=== PATIENT | male | born 1980 | race Hispanic/Latino ===

== ENCOUNTER 2017-01-15 15:41 | Emergency (ER) | payer OTHER ==
[~2017-01-15] VITALS: Ht 172.7 cm; Wt 84.0 kg
[2017-01-15] MEDS ORDERED: Lidocaine 1% 50 mL Inj NERVEBLOCK ONE (16:05)
[2017-01-15] MEDS ORDERED: CeFAZolin Inj 1 GM in IV Premix 1 EACH IV ONE (16:05)
[2017-01-15] MEDS ORDERED: TdaP Vaccine 0.5 mL Inj IM ONE (16:05)
[2017-01-15 16:44] VITALS: BP 125/71; PULSE 72; RESP 12
--- NOTE | 2017-01-15 16:45 | DRSVH ---
PROCEDURE: X-RAY FINGERS, TWO VIEWS INDICATIONS: Left middle trauma TECHNIQUE: AP hand, 2 views of the middle finger were acquired. COMPARISON: None. FINDINGS: There is a soft tissue laceration identified along the ulnar aspect of the distal margin of the 3rd f matt with associated of minimally comminuted fracture involving the tuft of the distal phalanx. No intra-articular extension is evident. No definite radiopaque foreign bodies are evident. Remainder of the imaged osseous structures are otherwise intact and unremarkable. IMPRESSION: Soft tissue laceration of the distal phalanx of the middle finger with involvement of the bone. No radiopaque foreign bodies. Dictated by: Ronen Rosales M.D. on 01/15/2017 at 15:42 Approved by: Ronen Rosales M.D. on 01/15/2017 at 15:43
--- NOTE | 2017-01-15 17:29 | ED.REPORT ---
HPI-Extremity Problem Upper Date of Service Jan 15, 2017 ED Provider: Chance Red MD Jerardo Gonzalez is a pleasant 37-year-old gentleman with no previous medical history presented to the [facility] emergency department by recommendation of her urgent care after suffering laceration with a window trimmer apprentice to his left third and fourth distal fingers within a couple hours of arrival. He states he was using the window trimmer apprentice when what he was working on was about to fall and in order to catch it from falling he reached down and his fingers hit the blades of the window trimmer apprentice. He denies any previous injuries similar to this. He denies any alcohol or drug use. He thinks his last tetanus vaccination was over 10 years ago. He presents with his hand wrapped in gauze and Coban states that it feels as though it is throbbing. Nursing Notes Stated Complaint: CUT FINGER Chief Complaint: Extremity Trauma Nursing Notes Reviewed: Yes Allergies: Coded Allergies: No Known Allergies (Unverified Allergy, Unknown, 09/05/14) Scheduled Cephalexin (Keflex) 500 Mg Capsule 500 MG PO QID General Time Seen by MD: 15:56 Chief Complaint Finger injury left 3, Finger injury left 4 Hx Obtained From: Patient Past Medical History Past Medical History denies Past Surgical History denies Smoking History Never Smoker Social History Alcohol Use: Denies alcohol use Drug Use: Denies drug use Other Social History: Ambulatory Status Independent Review of Systems Denies lightheadedness, dizziness, chest pain, shortness of breath, injuries elsewhere to his body. No abdominal pain, nausea, vomiting. No numbness or tingling or weakness in his arms hands feet or legs Complete sys rev & neg: except as marked. Physical Exam General: Sitting up, no apparent distress, stoic affect. HEENT: Normocephalic, atraumatic, EOMI grossly, Cardiovascular: Regular rate and rhythm, no clicks murmurs rubs, peripheral pulses 2/4 equal bilaterally Pulmonary: Clear to auscultation bilaterally, no W/R/R. Abdominal: Soft to palpation, bowel sounds present 4, no hepatosplenomegaly. Negative rebound. Extremities: Left third digit had bandages removed, revealed hemostatic partial amputation to the distal third phalanx, there is involvement of the fingernail, no bone is visible. There is a abrasion to the medial portion of the left fourth distal phalanx, hemostatic. The rest of the hand appears atraumatic, sensation intact. Neuro: Neurologically grossly intact, strength is equal bilaterally upper and lower extremities. MSK: Gait is normal, able to move extremities on their own volition, strength 5 out of 5 equal bilaterally to upper and lower extremities. Initial Vital Signs Vital Signs (First) Date Time Temp Pulse Resp B/P Pulse Ox O2 Delivery O2 Flow Rate FiO2 01/15/17 16:44 36.8 72 12 125/71 01/15/17 18:39 96 Room Air Initial VS: Reviewed Procedures Laceration Nailbed Mgmt Laceration Nailbed Management: There was involvement of the fingernail of the left third phalanx, from the tip of the finger to the cuticle. Irrigated copiously with roughly 750 mL normal saline, following debridement with pulse irrigation, the wound was explored and no foreign bodies were found. Digital Block Procedure: Lidocaine 1%, 27g needle Debridement: Yes Irrigation: Copious Foreign Body Explore / Removal: Explored for foreign body Re-Eval/Medical Decision Med Decision/Clinical Course Wound was cleaned, evaluated, and they found suitable for suturing, orthopedics on-call doctor Hieu Sweeney was consulted who recommended the wound be dressed with Xeroform gauze, wrapped in dressing, and patient follow-up as an outpatient with primary care and orthopedic office. Additionally patient needs to start taking Keflex for prophylaxis. The plan was discussed with the patient , questions were answered, he was given strict follow-up instructions to be seen at the residency clinic, and the orthopedics office, if he was unable to be seen within 1 week by either he is to go to urgent care. Patient stated understanding and agreement. Discharge & Departure Impression: Primary Impression: Traumatic amputation of tip of finger of left hand Additional Impression: Abrasion of finger, left Encounter type: initial encounter Qualified Code: S60.419A - Abrasion of unspecified finger, initial encounter Patient Instructions: Acute Wound Care (ED) Additional Instructions: Please take the prescription as prescribed. This will prevent infection to your injury. If you experience any worsening pain, purulent discharge (pus) increased redness, throbbing, or redness moving down her finger into your hand, develops any fevers, chills, please return back to the emergency department. Please follow-up at the [facility] orthopedics office for re- evaluation within 1 week. I encourage you to find a primary care doctor. You may follow-up at [facility] residency clinic for ER follow-up, please call for scheduling. Number is [phone]. Referrals: NOPCP (PCP) EDSupervising Provider for APC: Chance Red MD Attending Statement I discussed patient with resident Celio. I saw patient independently and agree with plan as above. In brief, 37-year-old male with partial distal amputation of his right middle finger and abrasion right index finger. There is a distal phalanx fracture. Minimal active bleeding. Discussed with orthopedics Dr. Sweeney who recommended Xeroform dressing, keflex and follow-up with them in orthopedics on Wednesday (resident note above says one week but Dr Sweeney said wednesday and we informed patient of this). Patient was also splinted. Given one dose of Ancef, tetanus. Copious irrigation. Discharged with return precautions regarding signs and symptoms of infection. copies to: Hieu Sweeney MD; [facility] Res[facility] Clinic Cristian Pickens DO Jan 15, 2017 17:29 Chance Red MD Jan 15, 2017 18:03
[2017-01-15] MEDS ORDERED: CEPH-512 PO (17:33)
[2017-01-15 18:39] VITALS: BP 117/83; RESP 16; O2SAT 96
== END 2017-01-15 18:40 ==
LOC: SED 15:47
DX: S68.412A Complete traumatic amputation of left hand at wrist level, initial encounter (principal); S60.415A Abrasion of left ring finger, initial encounter; W29.3XXA Contact with powered garden and outdoor hand tools and machinery, initial encounter; Y93.H2 Activity, gardening and landscaping; Y92.9 Unspecified place or not applicable; Y99.8 Other external cause status; Z23 Encounter for immunization
CPT/HCPCS: 11042; 73140; 90471; 90715; 96365; 99284; J0690